=== PATIENT | male | born 1935 | race Caucasian/White ===

== ENCOUNTER 2022-08-01 21:01 | Inpatient (IN) | payer MEDICARE ==
[~2022-08-01] VITALS: Ht 185.4 cm; Wt 66.7 kg
[2022-08-01] MEDS ORDERED: BETAPACE AF80 MG/TA1 PO (21:25)
[2022-08-01 21:59] VITALS: BP 131/52; PULSE 84; TEMP 98.8
--- NOTE | 2022-08-01 22:16 | NUR ---
Patient arrived to surgical unit from [facility] via EMS at approximately 2114. Alert and oriented. Complaining of intermittent muscle spasms to right hip. Spoke with JANIYA Berkowitz, and given PRN Morphine. Denies SOB and dyspnea. LS CTA. HRR. BSAx4. No edema. Skin dry, flaky. Has skin tears to right elbow and left upper arm. Various scabs to BUE and BLE. Used urinal, urine clear and yellow. Voices no questions, needs, or concerns at this time. Aware that he is NPO after midnight. In bed with call light within reach. High fall risk precautions in place. Bed alarm on.
[2022-08-01 23:29] VITALS: BP 131/59; PULSE 68; TEMP 97.5
[2022-08-02] VITALS (17 sets, daily range): BP systolic 98–140; BP diastolic 47–87; PULSE 53–119; TEMP 97.3–99.1
--- NOTE | 2022-08-02 05:25 | NUR ---
Patient has received PRN pain medication per orders. See MAR. Has been NPO since midnight. Has been using urinal. Declined goodwin catheter, and JANIYA Berkowitz is ok with this until time for surgery. Ortho to see patient this morning. Voices no quesitons, needs, or concerns at this time. In bed with call light within reach. High fall risk precautions in place. Bed alarm on.
[2022-08-02 06:50] LABS: CALCIUM 8.4 mg/dL (8.4-10.2); CREATININE, serum 1.08 mg/dL (0.72-1.25); MAGNESIUM 1.9 mg/dL (1.6-2.6); POTASSIUM 3.8 mmol/L (3.5-4.5)
[2022-08-02 06:54] LABS: BASO % 0.3 % (0.0-2.0); EOS # 0.2 K/mm3 (0.0-0.7); EOS % 2.3 % (0.0-4.0); GRAN # 6.8 K/mm3 (1.4-6.5); GRAN % 77.5 % (42.2-75.2); HEMOGLOBIN 12.8 g/dl (13.5-18.0); LYMPH # 0.6 K/mm3 (1.2-3.4); MEAN CELL VOLUME 95 fl (80.0-100.0); MEAN CORPUSCULAR HEMOGLOBIN 31 pg (27-31); MEAN CORPUSCULAR HGB CONC 33 g/dl (33.0-37.0); MEAN PLATELET VOLUME 12.9 fl (7.4-10.4); MONO # 1.1 K/mm3 (0.1-0.6); MONO % 12.4 % (1.7-9.3); PLATELET COUNT 82 K/mm3 (130-400); RED BLOOD COUNT 4.11 M/mm3 (4.20-5.60); REDCELL DISTRIBUTION WIDTH-CV 12.9 % (11.5-14.5)
--- NOTE | 2022-08-02 07:44 | NUR ---
CONTACTED FLORIDA DENSON AND RELAYED UPDATE FROM TELE. GAVE SCHEDULED SOTALOL ORDERED. CONTINUE TO MONITOR.
--- NOTE | 2022-08-02 07:53 | NUR ---
DR. HALL IN TO SEE PT. PT IS INTERMITTANTLY CONFUSED. SON [place] ON WAY FROM [place]. SOTALOL GIVEN ORDERED. WAITING FOR MEDICAL CLEARANCE PRIOR TO SURGERY TO FIX HIP FX.
--- NOTE | 2022-08-02 09:02 | NUR ---
PT RESTING IN BED. DR. HALL IN TO SEE PATIENT. WAITING FOR CLEARANCE.
[2022-08-02 09:28] LABS: COLLECTION METHOD CATHETER
[2022-08-02 09:50] LABS: MUCOUS Present (NOT PRESENT); SQUAMOUS EPITHELIAL 0-2 /hpf (0-10); URINE BACTERIA None Seen /hpf (NONE SEEN)
[2022-08-02 09:51] LABS: URINE APPEARANCE Clear (CLEAR/HAZY); URINE COLOR Yellow (YELLOW)
[2022-08-02 09:52] LABS: URINE BLOOD TRACE-LYSED (NEGATIVE); URINE GLUCOSE Negative (NEGATIVE); URINE KETONE 1+ (NEGATIVE); URINE NITRATE Negative (NEGATIVE); URINE PROTEIN(semi-quant) 1+ (NEGATIVE)
[2022-08-02 10:48] LABS: TROPONIN-I 0.014 ng/mL (0.00-0.033); TSH w REFLEX 2.114 uIU/mL (0.350-4.940)
--- NOTE | 2022-08-02 10:55 | NUR ---
PT'S SON [place] HERE AT BEDSIDE. PT VOIDED 100 MLS CONCENTRATED URINE. PT HAS PACER AND CARDS HAS BEEN CONSULTED.
--- NOTE | 2022-08-02 12:59 | NUR ---
Noy: Unknown Situation: hogshead packer stopped by room on rounds Background: Pt was resting and content. Son is here from [place] Assessment: Pt has no needs right now. Sweat Band Sewer had a good conversation with son. Son appreciated the visit Recommendation: hogshead packer will follow up as needed
--- NOTE | 2022-08-02 13:14 | NUR ---
Fountain Supervisor met with patient to discuss discharge planning. Patient lives in [place], [place] with his , Deepa and sees Dr. Garza for primary care. Patient obtains medications from [facility] and reports he doesn't use any DME "yet". Patient advised he is normally independent with ADLS. Patient isn't sure if he has DPOA-HC set up. Patient has a son, Jose (ph#[phone]) that is also involved in his care. SW discussed rehab with patient however he wasn't sure if he would be interested in that at discharge. SW contacted patient's son, Jose to discuss discharge planning. Jose plans to visit patient today and stated his mother, patient's Deepa is currently at [facility] recovering from a stroke. Jose is understanding that patient will likely need rehab and advised their preferences would be either [facility] or [facility]. SW contacted both facilities and faxed referral. Patient to have surgery once medically cleared. Discharge Plan: Swing Bed
[2022-08-02 16:39] LABS: INR 1.2 (0.8-3.0); PROTHROMBIN TIME 13.8 SECONDS (9.7-12.8)
--- NOTE | 2022-08-02 17:01 | NUR ---
PT TO SURGERY PER BED AT THIS TIME.
--- NOTE | 2022-08-02 21:25 | NUR ---
pt brought to floor from pacu, son at bedside. vss, tele in place. pt sleepy but easy to arouse. pt denies pain. right hip dressing cdi. scds, teds, and ice in place. goodwin to oscar. amio gtt infusing at 17.3ml/hr. fall precautions in place. pt on 2l nc. no needs at this time. call light within reach.
--- NOTE | 2022-08-02 22:00 | NUR ---
po meds held due to pt being drowsy and not swallowing very well yet
[2022-08-03] VITALS (16 sets, daily range): BP systolic 80–121; BP diastolic 40–86; PULSE 70–96; TEMP 97.4–99.1
--- NOTE | 2022-08-03 05:38 | NUR ---
pt slept throughout the night, easy to arouse for morning meds. reports minimal pain. right hip incision remains cdi. no needs at this time.
[2022-08-03 07:01] LABS: HEMOGLOBIN 11.8 g/dl (13.5-18.0)
[2022-08-03 07:04] LABS: HEMATOCRIT 36.7 % (42.0-52.0)
--- NOTE | 2022-08-03 08:00 | NUR ---
PATIENT IS A&O. VSS ON TELE. PATIENT HAS HX OF A-FIB/A-FLUTTER AND PACER. PATIENT WAS ONLY ON .5L OF OXYGEN THIS AM, PATIENT NOW ON RA IN LOW TO MID 90'S, WILL MONITOR. PT AT BEDSIDE TO EVAL AND TREAT. PATIENT C/O PAIN IN RLE AND REQUESTING PAIN MEDS, GIVEN. PATIENT STRUGGLED TO GET UP WITH PT, HUNCHED OVER GAIT, WEAK, UNSTEADY AND SAT BACK DOWN ON BED. PT PIVOT TRANSFERED PATIENT TO BEDSIDE CHAIR, SEE PT NOTES. RIGHT HIP DRESSING IS CD&I WITH OCCLUSIVE DSG. TEDS TO BLE. SCD'S CURRENTLY OFF. POSITIVE PEDAL PULSES TO BLE. MURILLO TO DD WITH MOD AMOUNTS OF CLEAR YELLOW URINE NOTED. IV FLUIDS INFUSING VIA PUMP INTO LEFT HAND IV, AMIO GTT INFUSING VIA PUMP INTO RIGHT WRIST IV. NO C/O N/V. DIET ADVANCED TO AHA AND BREAKFAST TRAY ORDERED. HEAD TO TOE ASSESSMENT COMPLETE. CALL LIGHT IN REACH. NO OTHER NEEDS AT THIS TIME.
--- NOTE | 2022-08-03 15:14 | NUR ---
General Agent contacted [facility] and spoke with RN who advised their Dr has accepted patient whenever he is ready for discharge. SORAYA spoke with Hospitalist who advised patient will likely be ready tomorrow vs Monday. SORAYA faxed clinical updates to [facility]. SORAYA also contacted patient's son, Jose to provide update. Jose advised his mom will be discharged from [facility] likely tomorrow. Discharge Plan: [facility]
--- NOTE | 2022-08-03 15:25 | NUR ---
PATIENT GIVEN AMIO PO PER VERBAL ORDERS, AMIO GTT IS NOW OFF. WILL MONITOR PATIENT ON TELE. PATIENT RESTING COMFORTABLY AT THIS TIME WITH NO NEEDS.
--- NOTE | 2022-08-03 20:13 | NUR ---
pct reported to this nurse pts bp of 84/50. rechecked bp of 80/60, pt tachy from 100-115. called elana, order for 500 bolus and EKG.
--- NOTE | 2022-08-03 20:15 | NUR ---
pt resting in bed, reports pain in hip. due to low bp, tylenol administered per emar. meds given and assessment complete. aqaucell dressing to right hip is cdi. scds to ble. goodwin to dd w dark orange urine output. fall precautions in place. call light in reach.
--- NOTE | 2022-08-03 21:06 | NUR ---
called elana for update, afib on ekg and bp improving. increasing fluid rate to 100 ml/hr.
--- NOTE | 2022-08-03 21:44 | NUR ---
pt yelling out in pain. checked on pt, refuses taking anything for pain and does not want an ice pack. will check back and see if pt is willing to take pain medication to help relieve some discomfrot.
--- NOTE | 2022-08-03 22:46 | NUR ---
pt still denying want for pain medication, seems to be resting ok.
[2022-08-04] VITALS (13 sets, daily range): BP systolic 90–123; BP diastolic 39–81; PULSE 70–94; TEMP 97.5–980
--- NOTE | 2022-08-04 00:23 | NUR ---
called elana about pts low bp, another fluid bolus ordered and for morning labs to be drawn.
[2022-08-04 03:04] LABS: BASO % 0.3 % (0.0-2.0); EOS # 0.4 K/mm3 (0.0-0.7); EOS % 5.6 % (0.0-4.0); GRAN # 4.8 K/mm3 (1.4-6.5); GRAN % 69.6 % (42.2-75.2); LYMPH # 0.9 K/mm3 (1.2-3.4); LYMPH % 12.3 % (20.0-51.0); MEAN CORPUSCULAR HGB CONC 35 g/dl (33.0-37.0); MEAN PLATELET VOLUME 11.3 fl (7.4-10.4); MONO # 0.8 K/mm3 (0.1-0.6); RED BLOOD COUNT 3.06 M/mm3 (4.20-5.60); REDCELL DISTRIBUTION WIDTH-CV 12.9 % (11.5-14.5)
[2022-08-04 03:13] LABS: CALCIUM 7.6 mg/dL (8.4-10.2); CREATININE, serum 1.09 mg/dL (0.72-1.25); POTASSIUM 3.5 mmol/L (3.5-4.5)
[2022-08-04 03:25] LABS: HEMATOCRIT 27.5 % (42.0-52.0); HEMOGLOBIN 9.5 g/dl (13.5-18.0); MEAN CELL VOLUME 90 fl (80.0-100.0); MEAN CORPUSCULAR HEMOGLOBIN 31 pg (27-31)
[2022-08-04 03:28] LABS: PLATELET COUNT 53 K/mm3 (130-400)
--- NOTE | 2022-08-04 04:04 | NUR ---
morning labs resulted, potassium replacement ordered per elana. order to check magnesium as well.
--- NOTE | 2022-08-04 07:45 | NUR ---
PT RESTING IN BED, ASSESSMENTS COMPLETE, VSS, POTASSIUM PROTOCOL REPLACEMENT ONGOING. DRESSINGS TO RIGHT HIP CDI. CONTINUE WITH THERAPY UNTIL ABLE TO PLACE IN SWB TO [facility].
--- NOTE | 2022-08-04 10:39 | NUR ---
Crop Adjuster attended clinical rounds with the team and patient is not ready for discharge at this time. Plan will be to keep him another day, possibly discharge tomorrow. SORAYA contacted Mandi at [facility] to provide update. SORAYA also contacted patient's son, Jose who advised he plans to transport patient to [facility] tomorrow at time of discharge. Discharge Plan: [facility]
--- NOTE | 2022-08-04 20:26 | NUR ---
pt resting in bed, oriented to person but forgetful about where he is. pt reoriented. reports minimal pain in the right hip. pts right leg assessed and seemed to be externally rotated, order for right hip xray. dressing is cdi. fall precautions in place. goodwin to dd. vss and tele in place. INT to left hand. no needs at this time. call light in reach.
[2022-08-05 00:15] VITALS: PULSE 71; TEMP 98
--- NOTE | 2022-08-05 02:55 | NUR ---
pt grimacing in pain, pulling on goodwin catheter upon entry. pt finally agreeable to take pain medication for right hip/low back pain. offered ice pack as well but pt declined.
[2022-08-05 03:16] VITALS: BP 116/50; PULSE 70; TEMP 98.3
[2022-08-05 04:40] VITALS: PULSE 70; TEMP 98.3
[2022-08-05 06:17] LABS: BASO % 0.4 % (0.0-2.0); EOS # 0.3 K/mm3 (0.0-0.7); EOS % 5.5 % (0.0-4.0); GRAN # 4.1 K/mm3 (1.4-6.5); GRAN % 71.2 % (42.2-75.2); LYMPH # 0.5 K/mm3 (1.2-3.4); LYMPH % 9.5 % (20.0-51.0); MEAN CELL VOLUME 92 fl (80.0-100.0); MEAN CORPUSCULAR HGB CONC 35 g/dl (33.0-37.0); MEAN PLATELET VOLUME 12.6 fl (7.4-10.4); MONO # 0.7 K/mm3 (0.1-0.6); MONO % 12.9 % (1.7-9.3); PLATELET COUNT 71 K/mm3 (130-400); RED BLOOD COUNT 3.01 M/mm3 (4.20-5.60); REDCELL DISTRIBUTION WIDTH-CV 13.1 % (11.5-14.5)
[2022-08-05 06:19] LABS: HEMATOCRIT 27.8 % (42.0-52.0); HEMOGLOBIN 9.6 g/dl (13.5-18.0); MEAN CORPUSCULAR HEMOGLOBIN 32 pg (27-31)
[2022-08-05 06:36] LABS: CALCIUM 8.1 mg/dL (8.4-10.2); CREATININE, serum 0.85 mg/dL (0.72-1.25); POTASSIUM 3.8 mmol/L (3.5-4.5)
[2022-08-05 07:23] VITALS: BP 132/60; PULSE 70; TEMP 97.9
[2022-08-05] MEDS ORDERED: ROXICODONE 55 MG/TAB PO (08:20)
[2022-08-05] MEDS ORDERED: ASPI325T6 PO (08:20)
[2022-08-05] MEDS ORDERED: OSCAL 500 TAB500 MG PO (08:21)
[2022-08-05] MEDS ORDERED: TYLENOL 500MG500 MG PO (08:21)
[2022-08-05] MEDS ORDERED: VITAMIN C500 MG PO (08:21)
[2022-08-05] MEDS ORDERED: DUO-KAPS1 CAP PO (08:21)
[2022-08-05] MEDS ORDERED: NATURAL IRON65 MG PO (08:29)
[2022-08-05] MEDS ORDERED: PACERONE400 MG PO (09:22)
[2022-08-05 09:28] VITALS: PULSE 70; TEMP 97.9
--- NOTE | 2022-08-05 09:30 | NUR ---
Hospitalist team rounded. Dischagre orders obtained. Patient alert & oriented. Very plesant. Guevara removed, patient tolerated well. Breakfast ordered. Patient took am medication with water, little difficulty noted, suggested he take medications one at a time vs all at once. Rightestephanie ray dressing intact to hip. Will monitor.
[2022-08-05 11:41] VITALS: BP 103/43; PULSE 71; TEMP 97.4
--- NOTE | 2022-08-05 11:49 | NUR ---
Report called to Nurse at [facility]. Questions answered. Patient dressed and ready for discharge. Awaiting his sons arrival.
--- NOTE | 2022-08-05 13:30 | NUR ---
Patient ready for discharge. Patient transfered to [employer] vehicle with 3 assist. Heavy assist. Cody made aware of his dischagrge.
--- NOTE | 2022-08-05 15:48 | NUR ---
Sales Development Manager attended clinical rounding with the team and patient to discharge to [facility] today. SORAYA contacted Mandi with [facility] and they can accept patient. Accepting physician is Dr. Kramer and his contact information was provided to Hospitalist for to Dr hill. SORAYA contacted patient's son, Jose who will be here today to transport patient. SORAYA met with patient and presented IM form. Patient verbalized understanding and provided signature. SORAYA placed form in chart and provided copy to patient. Patient is agreeable to discharge today. SORAYA faxed discharge orders to [facility]. Discharge Plan: [facility]
== END 2022-08-05 14:03 | disposition swing bed (61) | DRG 522 ==
LOC: SURG 21:01
PROVIDERS: Internal Medicine; Nurse Anesthetist, Certified Registered; Orthopaedic Surgery; Physician Assistant; Student in an Organized Health Care Education/Training Program; ADMIT Hospitalist
PROC: 0SRR0J9 Replacement of Right Hip Joint, Femoral Surface with Synthetic Substitute, Cemented, Open Approach (ICD-10-PCS; principal; 2022-08-02 17:00)
DX: S72.001A Fracture of unspecified part of neck of right femur, initial encounter for closed fracture (principal); I48.92 Unspecified atrial flutter; I31.39 Other pericardial effusion (noninflammatory); M19.90 Unspecified osteoarthritis, unspecified site; I48.91 Unspecified atrial fibrillation; I10 Essential (primary) hypertension; E78.5 Hyperlipidemia, unspecified; W01.0XXA Fall on same level from slipping, tripping and stumbling without subsequent striking against object, initial encounter; I95.9 Hypotension, unspecified; M25.562 Pain in left knee; D64.9 Anemia, unspecified; E87.6 Hypokalemia; I35.8 Other nonrheumatic aortic valve disorders; Y93.89 Activity, other specified; Z95.0 Presence of cardiac pacemaker; Z79.01 Long term (current) use of anticoagulants; Y92.59 Other trade areas as the place of occurrence of the external cause; Z91.018 Allergy to other foods; Z23 Encounter for immunization
CPT/HCPCS: A4314; A9284; C1776; J0282; J0690; J2250; J2270; J2704; J3480; J7030; J7060